=== PATIENT | male | born 1985 | race Caucasian/White ===

== ENCOUNTER 2020-07-19 06:59 | Inpatient (IN) | payer MEDICAID, OTHER ==
[~2020-07-19] VITALS: Ht 175.3 cm; Wt 68.9 kg
--- NOTE | 2020-07-19 07:01 | NUR ---
[facility] CALLED @ [id number] Addendum: 07/19/20 at 0701 by [email or web address] PAGED CARDS @ [phone]
[2020-07-19] MEDS ORDERED: ASPIRIN 325 MG TABLET PO STA (07:02)
[2020-07-19] MEDS ORDERED: MORPHINE SULFATE 4 MG/ML, 1ML ONE (07:03)
[2020-07-19] MEDS ORDERED: LIDOCAINE 2%, 20ML ONE (07:11)
[2020-07-19] MEDS ORDERED: NITROGLYCERIN 5 MG/ML, 10ML ONE (07:11)
[2020-07-19] MEDS ORDERED: TICAGRELOR 90 MG TABLET ONE (07:11)
[2020-07-19] MEDS ORDERED: HEPARIN 1,000 UNITS/ML, 10ML ONE (07:11)
[2020-07-19] MEDS ORDERED: BIVALIRUDIN 250 MG ONE (07:11)
[2020-07-19] MEDS ORDERED: VERAPAMIL 2.5 MG/ML, 2ML ONE (07:11)
[2020-07-19] MEDS ORDERED: MIDAZOLAM 1 MG/ML, 5ML ONE (07:11)
[2020-07-19] MEDS ORDERED: FENTANYL PF 100 MCG/2ML ONE (07:11)
[2020-07-19 07:21] LABS: BASOPHILS % (AUTO) 1 % (0-1); EOSINOPHILS % (AUTO) 3 % (1-7); LYMPHOCYTES % (AUTO) 23 % (22-44); MD NO; MEAN CORPUSCULAR HGB CONC 33.6 g/dL (33.2-36.2); MEAN PLATELET VOLUME 8.7 fL (7.4-10.4); MONOCYTES % (AUTO) 10 % (2-9); NEUTROPHILS % (AUTO) 62 % (42-75); PLATELET COUNT 215 x10^3/uL (130-400); RED BLOOD COUNT 5.08 x10^6/uL (4.38-5.82); RED CELL DISTRIBUTION WIDTH 12.4 % (9.4-14.8)
--- NOTE | 2020-07-19 07:21 | NUR ---
PT ARRIVES AT 0659 VIA EMS FROM [facility]. PT WOKE AT 0200 WITH LEFT SIDED CP "PRESSURE" 10/10, SCHEDULE ANNOUNCER PT REC'D 324MG ASA, NTG X 1, FENATNYL 100MCG. PT PRESENTS WITH CP 7/10, VSS, DR WINTER AT BEDSIDE. EKG COMPLETED AND PT PREPED FOR SERVER SUPPORT TECHNICIAN. 2ND PIV EST, ALL MONITORS PLACED. PT GIVEN 4MG MORPHINE, AND NTG X 1 FOR CP 7/10 WITH NO EFFECT. BP REMAINS STABLE NOTED. 0815 DR RAMIREZ AT BEDSIDE, POC DISCUSSED AND QUESTIONS ANSWERED.
[2020-07-19] MEDS ORDERED: MORPHINE SULFATE 4 MG/ML, 1ML IVPush PRN (07:30)
[2020-07-19] MEDS ORDERED: ONDANSETRON 2MG/ML, 2ML IVPush ONE (07:30)
[2020-07-19] MEDS ORDERED: NITROGLYCERIN 0.4 MG BOTTLE (25 TABS) SL PRN ×2 (07:30→08:00)
[2020-07-19 07:32] LABS: INTERNATIONAL NORMALIZED RATIO 1.03 (0.93-1.1)
[2020-07-19 07:34] LABS: TROPONIN I < 0.015 ng/mL (0.000-0.045)
--- NOTE | 2020-07-19 07:35 | NUR ---
PT TO VALIDATION SCIENTIST.
[2020-07-19] MEDS ORDERED: HYDROCORTISONE 100 MG INJ. ONE (07:37)
[2020-07-19] MEDS ORDERED: NITROGLYCERIN 0.4 MG/SPRAY SL PRN (08:00)
[2020-07-19] MEDS ORDERED: QUET50TA5 PO (08:03)
[2020-07-19] MEDS ORDERED: LEVE500T53 PO (08:03)
[2020-07-19] MEDS ORDERED: CITA20TA9 PO (08:03)
[2020-07-19] MEDS ORDERED: SODIUM CHLORIDE 0.9% 1,000 ML IV SCH (08:30)
[2020-07-19] MEDS ORDERED: BIVALIRUDIN 250 MG in SODIUM CHLORIDE 0.9% 50 ML IV SCH ×2 (08:30→08:50)
[2020-07-19] MEDS ORDERED: METOPROLOL TARTRATE 25 MG TAB PO ONE (08:30)
[2020-07-19] MEDS ORDERED: TICAGRELOR 90 MG TABLET PO SCH (09:00)
[2020-07-19] MEDS ORDERED: ACETAMINOPHEN 650 MG/20.3 ML UDC PO PRN (09:00)
[2020-07-19] MEDS ORDERED: ONDANSETRON 2MG/ML, 2ML IV PRN (09:30)
[2020-07-19] MEDS ORDERED: ZOLPIDEM 5MG TABLET PO PRN (09:30)
[2020-07-19] MEDS ORDERED: BISACODYL 10 MG SUPP PR PRN (09:30)
[2020-07-19] MEDS: SODIUM CHLORIDE FLUSH 10ML SYR IVF SCH ×2 (10:34→20:02)
[2020-07-19] MEDS: ATORVASTATIN 80 MG TABLET PO SCH ×2 (10:35→20:01)
[2020-07-19 12:37] VITALS: BP 105/66
[2020-07-19 13:32] LABS: TROPONIN I < 0.015 ng/mL (0.000-0.045)
[2020-07-19] MEDS: METOPROLOL TARTRATE 25 MG TAB PO SCH (18:36)
[2020-07-19 19:55] VITALS: BP 107/69
[2020-07-19] MEDS: LEVETIRACETAM 500 MG TABLET PO SCH (20:01)
[2020-07-19] MEDS: TICAGRELOR 90 MG TABLET PO SCH (20:02)
[2020-07-19] MEDS ORDERED: QUETIAPINE 25MG TABLET PO SCH (21:00)
[2020-07-20 03:18] VITALS: BP 96/60
[2020-07-20 04:55] LABS: ANION GAP 4 mmol/L (5-15); CALCIUM 8.9 mg/dL (8.5-10.1); CHLORIDE 110 mmol/L (98-107)
[2020-07-20 04:59] LABS: CHOL/HDL RATIO 3.8; CHOLESTEROL, TOTAL 204 mg/dL (140-239); CREATININE 0.99 mg/dL (0.7-1.3); HDL CHOL % 26 % (26-37); HDL CHOLESTEROL (DIRECT) 53 mg/dL (40-60); LDL CHOLESTEROL,CALCULATED 132 mg/dL (54-169); LDL/HDL RATIO 2.5 (0.5-3.0); TRIGLYCERIDES 96 mg/dL (50-200); VLDL CHOLESTEROL 19 mg/dL (0-25)
[2020-07-20 05:41] VITALS: BP 102/67
[2020-07-20] MEDS: METOPROLOL TARTRATE 25 MG TAB PO SCH (05:43)
[2020-07-20] MEDS ORDERED: ASPIRIN 81 MG TABLET EC PO SCH (06:00)
[2020-07-20 07:47] VITALS: BP 102/67
[2020-07-20] MEDS ORDERED: CITALOPRAM 20 MG TABLET PO SCH (09:00)
[2020-07-20] MEDS: LEVETIRACETAM 500 MG TABLET PO SCH (10:25)
[2020-07-20] MEDS: SODIUM CHLORIDE FLUSH 10ML SYR IVF SCH (10:25)
[2020-07-20] MEDS: TICAGRELOR 90 MG TABLET PO SCH (10:25)
[2020-07-20] MEDS ORDERED: METO25TA2 PO (11:02)
[2020-07-20] MEDS ORDERED: TICA90TA PO (11:02)
[2020-07-20] MEDS ORDERED: ATOR-2 PO (11:02)
[2020-07-20] MEDS ORDERED: ASPI81TA45 PO (11:02)
[2020-07-20] MEDS ORDERED: CLOP75TA52 PO (11:02)
[2020-07-20 11:31] LABS: TROPONIN I 0.093 ng/mL (0.000-0.045)
[2020-07-20 13:11] VITALS: BP 100/66
== END 2020-07-20 13:49 | disposition home or self-care (01) | DRG 247 ==
LOC: EDBD 06:59 → ED 07:21 → 5SO 07:31
PROVIDERS: ADMIT Internal Medicine Cardiovascular Disease; ATTEND Internal Medicine Cardiovascular Disease
PROC: 4A023N7 Measurement of Cardiac Sampling and Pressure, Left Heart, Percutaneous Approach (ICD-10-PCS; principal; 2020-07-19)
PROC: 027034Z Dilation of Coronary Artery, One Artery with Drug-eluting Intraluminal Device, Percutaneous Approach (ICD-10-PCS; 2020-07-19)
PROC: B2111ZZ Fluoroscopy of Multiple Coronary Arteries using Low Osmolar Contrast (ICD-10-PCS; 2020-07-19)
PROC: B2151ZZ Fluoroscopy of Left Heart using Low Osmolar Contrast (ICD-10-PCS; 2020-07-19)
DX: I21.19 ST elevation (STEMI) myocardial infarction involving other coronary artery of inferior wall (principal); I25.10 Atherosclerotic heart disease of native coronary artery without angina pectoris; F25.9 Schizoaffective disorder, unspecified; F17.210 Nicotine dependence, cigarettes, uncomplicated; Z82.49 Family history of ischemic heart disease and other diseases of the circulatory system
CPT/HCPCS: 36415; 93458; 96374; 99291; J3490; 71045; 80047; 80048; 80061; 84484; 85014; 85018; 85025; 85379; 85610; 85730; 93005; 93306; 99156; 99157; C1769; C1894; G0378; J0583; J1644; J2250; J3010; C1725; C1874; C1887; J1720; J2270; Q9967

== ENCOUNTER 2020-07-29 03:52 | Emergency (ER) | payer MEDICAID, OTHER ==
[~2020-07-29] VITALS: Ht 177.8 cm; Wt 70.0 kg
[~2020-07-29 03:52] MED LIST: ASPI81TA45 PO; ATOR-2 PO; CITA20TA9 PO; CLOP75TA52 PO; LEVE500T53 PO; METO25TA2 PO; QUET50TA5 PO; TICA90TA PO
[2020-07-29] MEDS ORDERED: ONDANSETRON 2MG/ML, 2ML IVPush ONE (04:00)
[2020-07-29] MEDS ORDERED: NITROGLYCERIN OINT 2%, 1GM TP ONE (04:00)
[2020-07-29] MEDS ORDERED: SODIUM CHLORIDE FLUSH 10ML SYR IVF ONE (04:00)
[2020-07-29] MEDS: MORPHINE SULFATE 4 MG/ML, 1ML IVPush PRN ×2 (04:13→05:30)
[2020-07-29 04:19] LABS: BASOPHILS % (AUTO) 1 % (0-1); EOSINOPHILS % (AUTO) 4 % (1-7); LYMPHOCYTES % (AUTO) 24 % (22-44); MEAN CORPUSCULAR HEMOGLOBIN 30.8 pg (27.5-34.5); MEAN CORPUSCULAR HGB CONC 33.9 g/dL (33.2-36.2); MEAN PLATELET VOLUME 8.6 fL (7.4-10.4); MONOCYTES % (AUTO) 9 % (2-9); NEUTROPHILS % (AUTO) 63 % (42-75); PLATELET COUNT 264 x10^3/uL (130-400); RED BLOOD COUNT 5.12 x10^6/uL (4.38-5.82); RED CELL DISTRIBUTION WIDTH 12.5 % (9.4-14.8)
[2020-07-29 04:26] LABS: MD NO
--- NOTE | 2020-07-29 04:28 | NUR ---
Pt RAMIROA from skilled nursing with c/o CP. Pt states having NE on 07/17/20 with stents placed. Pt states pain is crushing and has mild SOB. Denies radiation of pain or nausea. Pt A&O, calm and cooperative. Law enforcement at bedside. EKG done. Morphine given with relief stated. EMS gave pt 324mg ASA and 100mcg of fent. IV POWDER LOADER to right arm .
[2020-07-29 04:30] LABS: ALANINE AMINOTRANSFERASE 74 U/L (12-78); ALBUMIN 3.5 g/dL (3.4-5.0); ANION GAP 5 mmol/L (5-15); CALCIUM 8.2 mg/dL (8.5-10.1); CHLORIDE 110 mmol/L (98-107); CREATININE 0.93 mg/dL (0.7-1.3)
[2020-07-29] MEDS ORDERED: PLEASE ENTER HEIGHT AND WEIGHT MC SCH (04:30)
[2020-07-29 04:35] LABS: ALKALINE PHOSPHATASE 77 U/L (45-117); BILIRUBIN,TOTAL 0.3 mg/dL (0.2-1.0); TROPONIN I < 0.015 ng/mL (0.000-0.045)
[2020-07-29] MEDS ORDERED: KETOROLAC 30 MG/1 ML ONE (05:28)
[2020-07-29] MEDS ORDERED: KETOROLAC 30 MG/1 ML IVPush ONE (05:30)
[2020-07-29] MEDS ORDERED: MORPHINE SULFATE 4 MG/ML, 1ML ONE (05:47)
[2020-07-29 07:04] LABS: TROPONIN I < 0.015 ng/mL (0.000-0.045)
[2020-07-29 07:37] VITALS: BP 91/53
--- NOTE | 2020-07-29 07:38 | NUR ---
The patient is resting in bed with side rails up and officer at bedside. Urinal provided and call light within reach. He states he still has 8/10 CP. no sob noted. will notify
--- NOTE | 2020-07-29 08:14 | NUR ---
Patient/law enforcement given discharge instructions and they have confirmed that they understand the instructions. Patient ambulatory with steady gait.
== END 2020-07-29 08:13 | disposition home or self-care (01) ==
LOC: ED 03:58
DX: R07.89 Other chest pain (principal); R00.1 Bradycardia, unspecified; I25.2 Old myocardial infarction; R94.31 Abnormal electrocardiogram [ECG] [EKG]; Z87.891 Personal history of nicotine dependence
CPT/HCPCS: 36415; 71045; 80053; 83880; 84484; 85025; 93005; 96374; 96375; 96376; 99285; J1885; J2270